=== PATIENT | female | born 1975 | race Caucasian/White ===

== ENCOUNTER 2020-11-20 10:45 | Observation (INO) ==
[2020-11-20] MEDS ORDERED: Aspirin 81 MG TAB.CHEW PO ONE ×2 (10:55→14:22)
[2020-11-20] MEDS ORDERED: Isovue-370 500 ML BOTTLE IVP ONE (11:20)
[2020-11-20 11:24] LABS: Basophils % 0.3 %; Eosinophils # 0.1 K/mcL (0.0-0.6); Hematocrit 39.9 % (35.3-44.9); Immature Granulocytes % 0.4 % (0-4); Lymphocytes # 1.9 K/mcL (0.6-4.6); Lymphocytes % 25.4 %; Mean Corpuscular HGB Conc 32.6 g/dL (31.6-35.5); Mean Corpuscular Volume 85.8 fL (83.0-100.0); Mean Platelet Volume 9.2 fL (9.4-12.4); Monocytes # 0.4 K/mcL (0.0-1.3); Monocytes % 5.9 %; Neutrophils # 4.9 K/mcL (1.6-8.9); Platelet Count 238 K/mcL (140-400); Red Blood Count 4.65 M/mcL (3.82-4.97); Red Cell Distribution Width 12.6 % (11.5-14.5); White Blood Count 7.3 K/mcL (4.3-11.1)
[2020-11-20 12:00] LABS: Alanine Aminotransferase 11 Units/L (7-52); Albumin 4.1 g/dL (3.5-5.7); Albumin/Globulin Ratio 1.3 (1.1-2.2); Alkaline Phosphatase 96 Units/L (34-104); Aspartate Amino Transferase 13 Units/L (13-39); BUN/Creatinine Ratio 15 (6-26); Bilirubin,Indirect 0.3 mg/dL (0.0-1.0); Bilirubin,Total 0.3 mg/dL (0.3-1.0); Blood Urea Nitrogen 10 mg/dL (6-20); Calcium 8.8 mg/dL (8.6-10.3); Carbon Dioxide 27 mEq/L (23-29); Chloride 104 mEq/L (98-107); Globulin 3.2 g/dL (2.4-3.5); Glucose 107 mg/dL (70-105); Lipase 38 Units/L (11-82); Osmolality,Calculated 288 (280-300); Potassium 3.5 mEq/L (3.5-5.1); Sodium 139 mEq/L (136-145); Total Protein 7.3 g/dL (6.4-8.9); Troponin I 0.04 ng/mL (< 0.04); eGFR For African Americans > 60 (> 60); eGFR For Non-African Americans > 60 (> 60)
[2020-11-20 12:20] LABS: Bilirubin,Urine Negative (Negative); Blood,Urine Negative (Negative); Clarity,Urine Clear (Clear); Color,Urine Colorless (Yellow); Glucose,Urine (UA) Normal (Normal); Ketones,Urine Negative (Negative); Leukocyte Esterase,Urine Negative (Negative); Nitrite,Urine Negative (Negative); Protein,Urine Negative (Neg-Trace); Specific Gravity,Urine 1.005 (1.010-1.025); Urobilinogen,Urine Normal (Normal)
[2020-11-20] MEDS ORDERED: 0.9 % Sodium Chloride 1,000 ML IVC ONE (13:51)
[2020-11-20] MEDS ORDERED: Naloxone 0.4 MG/ML INJ IVP PRN (13:58)
[2020-11-20] MEDS ORDERED: Perflutren Lipid Microsphere 1.3 ML in 0.9 % Sodium Chloride 8.7 ML IVP PRN (13:59)
[2020-11-20] MEDS ORDERED: Nitroglycerin 0.4 MG TAB.SUBL SL PRN (14:24)
[2020-11-20 17:10] LABS: Magnesium 1.5 mg/dL (1.6-2.6); Phosphorous 2.1 mg/dL (2.7-4.5)
[2020-11-20] MEDS: Morphine Sulfate 2 MG/ML SYRINGE IVP PRN ×2 (17:52→22:43)
[2020-11-20] MEDS: *HR* Heparin 5,000 UNIT/ML VIAL SQ SCH (21:55)
[2020-11-21 05:30] LABS: Chol/HDL Ratio 3.8 (0-4.9)
[2020-11-21 05:33] LABS: Estimated Average Glucose 108 mg/dl; Hemoglobin A1C 5.4 %
[2020-11-21] MEDS ORDERED: Regadenoson 0.4 MG/5 ML SYRINGE IVP ONE (05:55)
[2020-11-21] MEDS: *HR* Heparin 5,000 UNIT/ML VIAL SQ SCH (06:08)
[2020-11-21] MEDS ORDERED: Aspirin 81 MG TAB.CHEW PO SCH (09:00)
[2020-11-21] MEDS ORDERED: lisinopriL 5 MG TABLET PO SCH (09:00)
[2020-11-21] MEDS ORDERED: Ondansetron 4 MG/2 ML VIAL IVP ONE (09:53)
[2020-11-21] MEDS ORDERED: Ondansetron 4 MG/2 ML VIAL ONE (09:54)
[2020-11-21 11:02] VITALS: BP 143/84
[2020-11-21] MEDS ORDERED: Acetaminophen 325 MG TABLET PO ONE (11:42)
== END 2020-11-21 13:05 | disposition home or self-care (01) ==
LOC: 3BNU 10:45 → EMEROOARM 10:45 → SUATTDRO 14:09 → 3BNU 18:53
PROVIDERS: ADMIT Internal Medicine; ATTEND Internal Medicine